=== PATIENT | male | born 1950 | race African-American/Black ===

== ENCOUNTER 2018-04-15 10:04 | Inpatient (IN) | payer OTHER, MEDICAID ==
[~2018-04-15] VITALS: Ht 160 cm; Wt 89.6 kg
[2018-04-15] MEDS ORDERED: KETOROLAC 30MG/ML VIAL IV STA (11:32)
[2018-04-15 12:23] LABS: BASOPHILS % 0.3 % (0.0-2.0); EOSINOPHILS % 0.7 % (0.0-5.0); HEMATOCRIT. 44.8 % (42.0-52.0); HEMOGLOBIN. 14.3 g/dL (14.0-18.0); MEAN CORPUSCULAR HEMOGLOBIN 23.9 pg (28.0-32.0); MEAN CORPUSCULAR VOLUME 75.1 fL (80.0-94.0); MEAN PLATELET VOLUME 11.3 fl (7.4-10.4); MONOCYTES % 12.4 % (2.0-8.0); NEUTROPHILS % 59.6 % (40.0-76.0); PLATELET 142 x1000/uL (130-400); RED BLOOD CELL COUNT 5.97 mill/uL (4.7-6.1); RED CELL DISTRIBUTION WIDTH 15.3 % (11.6-14.6)
[2018-04-15 12:31] LABS: CHLORIDE 105 mEq/L (98-107)
[2018-04-15] MEDS ORDERED: ASPIRIN 325MG EC TABLET PO ONE (12:45)
[2018-04-15 13:38] LABS: CREATINE KINASE MB FRACTION 1.5 ng/mL (0.5-3.6)
[2018-04-15] MEDS ORDERED: AMLODIPINE 5MG TABLET PO SCH (14:45)
[2018-04-15] MEDS ORDERED: LOSARTAN POTASSIUM 50 MG TABLET PO NR (14:45)
[2018-04-15] MEDS ORDERED: ACETAMINOPHEN 325MG TABLET PO PRN (16:30)
[2018-04-15] MEDS ORDERED: ONDANSETRON HCL 4MG/2ML INJ IV PRN (16:30)
[2018-04-15 16:43] LABS: CLARITY URINE CLEAR (CLEAR); COLOR URINE YELLOW (YELLOW); KETONES URINE NEGATIVE (NEGATIVE); LEUKOCYTE ESTERASE URINE NEGATIVE (NEGATIVE); NITRITE URINE NEGATIVE (NEGATIVE); OCCULT BLOOD URINE NEGATIVE (NEGATIVE); PROTEIN URINE TRACE (NEGATIVE); SPECIFIC GRAVITY URINE 1.015 (1.005-1.030); UROBILINOGEN URINE 0.2 E.U./dL (0.2-1.0)
[2018-04-15 17:01] LABS: *AMPHETAMINES SCREEN URINE NEGATIVE (NEGATIVE); *BARBITURATES SCREEN URINE NEGATIVE (NEGATIVE)
[2018-04-15 17:02] LABS: *BENZODIAZEPINES SCREEN URINE NEGATIVE (NEGATIVE); *COCAINE SCREEN URINE NEGATIVE (NEGATIVE); CANNABINOID URINE SCREEN NEGATIVE (NEGATIVE); METHADONE URINE SCREEN NEGATIVE (NEGATIVE); OPIATES URINE SCREEN NEGATIVE (NEGATIVE); PHENCYCLIDINE URINE SCREEN NEGATIVE (NEGATIVE)
[2018-04-15 18:00] VITALS: BP 196/86
[2018-04-15] MEDS: OMEPRAZOLE 20MG CAPSULE EXTENDED RELEASE PO SCH (18:14)
[2018-04-15] MEDS: HYDRALAZINE 20MG/ML VIAL IV PRN (18:15)
[2018-04-15] MEDS ORDERED: LABETALOL 5MG/ML SYR 20 MG/4 ML SYRINGE IV NR (19:00)
[2018-04-15 20:00] VITALS: BP 112/87
[2018-04-15] MEDS ORDERED: HYDR-4135 MT (20:58)
[2018-04-15] MEDS ORDERED: LISI40TA4 MT (20:58)
[2018-04-15] MEDS ORDERED: AMLO10TA80 MT (20:58)
[2018-04-15] MEDS ORDERED: ATOR10TA MT (20:58)
[2018-04-15] MEDS ORDERED: METO-539 PO (20:58)
[2018-04-15] MEDS ORDERED: DYZ MT (20:58)
[2018-04-15] MEDS ORDERED: NAPR375T5 MT (20:58)
[2018-04-15] MEDS ORDERED: PROM5SYR PO (20:58)
[2018-04-15] MEDS ORDERED: ATEN50TA MT (20:58)
[2018-04-15] MEDS ORDERED: OMEP40CA34 MT (20:58)
[2018-04-15] MEDS ORDERED: ASPI-1159 MT (20:58)
[2018-04-15 22:33] VITALS: BP 140/74
[2018-04-15] MEDS: METOPROLOL TARTRATE 50MG TABLET PO SCH (22:33)
[2018-04-15] MEDS: AMLODIPINE 5MG TABLET PO SCH (22:33)
[2018-04-16] VITALS: BP 136/72
[2018-04-16 04:00] VITALS: BP 141/79
[2018-04-16 06:24] LABS: BASOPHILS % 0.2 % (0.0-2.0); EOSINOPHILS % 0.9 % (0.0-5.0); HEMATOCRIT. 42.7 % (42.0-52.0); HEMOGLOBIN. 13.5 g/dL (14.0-18.0); LYMPHOCYTES % 22.1 % (20.0-50.0); MEAN CORPUSCULAR HEMOGLOBIN 23.8 pg (28.0-32.0); MEAN CORPUSCULAR VOLUME 75.2 fL (80.0-94.0); MEAN PLATELET VOLUME 10.9 fl (7.4-10.4); MONOCYTES % 12.5 % (2.0-8.0); NEUTROPHILS % 64.3 % (40.0-76.0); PLATELET 141 x1000/uL (130-400); RED BLOOD CELL COUNT 5.67 mill/uL (4.7-6.1); RED CELL DISTRIBUTION WIDTH 15.7 % (11.6-14.6)
[2018-04-16] MEDS: OMEPRAZOLE 20MG CAPSULE EXTENDED RELEASE PO SCH (06:24)
[2018-04-16 07:21] LABS: CHLORIDE 106 mEq/L (98-107)
[2018-04-16 08:00] VITALS: BP 168/83
[2018-04-16] MEDS ORDERED: LOSARTAN POTASSIUM 50 MG TABLET PO SCH (09:00)
[2018-04-16] MEDS: AMLODIPINE 5MG TABLET PO SCH ×2 (09:10→20:28)
[2018-04-16] MEDS: METOPROLOL TARTRATE 50MG TABLET PO SCH ×2 (09:10→20:27)
[2018-04-16] MEDS: LOSARTAN POTASSIUM 100 MG TABLET PO SCH (09:10)
[2018-04-16] MEDS: ASPIRIN 81MG TABLET PO SCH (09:11)
[2018-04-16 11:14] LABS: T4 FREE 0.85 ng/dL (0.76-1.46)
[2018-04-16 12:00] VITALS: BP 152/88
[2018-04-16] MEDS: FUROSEMIDE 40MG/4ML VIAL IVP SCH (12:54)
[2018-04-16 16:00] VITALS: BP 165/84
[2018-04-16] MEDS: HYDROCODONE/ACETAMINOPHEN 5/325MG TABLET PO PRN (20:28)
[2018-04-16 23:58] LABS: CREATINE KINASE MB FRACTION 1.8 ng/mL (0.5-3.6)
[2018-04-17] VITALS: BP 130/67
[2018-04-17 04:00] VITALS: BP 145/79
[2018-04-17] MEDS: OMEPRAZOLE 20MG CAPSULE EXTENDED RELEASE PO SCH (05:52)
[2018-04-17] MEDS: HYDROCODONE/ACETAMINOPHEN 5/325MG TABLET PO PRN ×3 (05:55→20:41)
[2018-04-17 08:00] VITALS: BP 164/94
[2018-04-17 08:11] LABS: BASOPHILS % 0.1 % (0.0-2.0); EOSINOPHILS % 1.2 % (0.0-5.0); HEMATOCRIT. 45.5 % (42.0-52.0); HEMOGLOBIN. 14.4 g/dL (14.0-18.0); LYMPHOCYTES % 30.4 % (20.0-50.0); MEAN CORPUSCULAR HEMOGLOBIN 23.8 pg (28.0-32.0); MEAN CORPUSCULAR VOLUME 75.3 fL (80.0-94.0); MEAN PLATELET VOLUME 10.8 fl (7.4-10.4); MONOCYTES % 12.4 % (2.0-8.0); NEUTROPHILS % 55.9 % (40.0-76.0); PLATELET 149 x1000/uL (130-400); RED BLOOD CELL COUNT 6.04 mill/uL (4.7-6.1); RED CELL DISTRIBUTION WIDTH 15.9 % (11.6-14.6)
[2018-04-17 08:15] LABS: CHLORIDE 108 mEq/L (98-107)
[2018-04-17 08:25] LABS: CREATINE KINASE 253 IU/L (39-308)
[2018-04-17 08:26] LABS: CREATINE KINASE MB FRACTION 1.4 ng/mL (0.5-3.6)
[2018-04-17] MEDS: LOSARTAN POTASSIUM 100 MG TABLET PO SCH ×2 (08:27→09:00)
[2018-04-17] MEDS: ASPIRIN 81MG TABLET PO SCH ×2 (08:27→09:00)
[2018-04-17] MEDS: METOPROLOL TARTRATE 50MG TABLET PO SCH ×3 (08:27→20:41)
[2018-04-17] MEDS: AMLODIPINE 5MG TABLET PO SCH ×3 (08:28→20:41)
[2018-04-17] MEDS: FUROSEMIDE 40MG/4ML VIAL IVP SCH (09:46)
[2018-04-17 12:00] VITALS: BP 170/87
[2018-04-17] MEDS ORDERED: REGADENOSON 0.4 MG/5 ML IV ONE (14:00)
[2018-04-17] MEDS: HYDRALAZINE HCL 50MG TABLET PO SCH ×2 (14:58→22:00)
[2018-04-17 16:00] VITALS: BP 141/79
[2018-04-17 20:00] VITALS: BP 183/91
[2018-04-18] VITALS: BP 165/90
[2018-04-18] MEDS: HYDRALAZINE 20MG/ML VIAL IV PRN ×2 (01:52→11:03)
[2018-04-18 04:00] VITALS: BP 144/60
[2018-04-18] MEDS: HYDRALAZINE HCL 50MG TABLET PO SCH ×2 (06:00→14:12)
[2018-04-18] MEDS: OMEPRAZOLE 20MG CAPSULE EXTENDED RELEASE PO SCH (06:45)
[2018-04-18 07:45] VITALS: BP 153/90
[2018-04-18] MEDS ORDERED: REGADENOSON 0.4 MG/5 ML IV ONE (08:14)
[2018-04-18 08:20] LABS: BASOPHILS % 0.3 % (0.0-2.0); EOSINOPHILS % 0.7 % (0.0-5.0); HEMATOCRIT. 49.6 % (42.0-52.0); HEMOGLOBIN. 15.6 g/dL (14.0-18.0); LYMPHOCYTES % 32.8 % (20.0-50.0); MEAN CORPUSCULAR HEMOGLOBIN 23.8 pg (28.0-32.0); MEAN CORPUSCULAR VOLUME 75.7 fL (80.0-94.0); MEAN PLATELET VOLUME 10.8 fl (7.4-10.4); MONOCYTES % 9.3 % (2.0-8.0); NEUTROPHILS % 56.9 % (40.0-76.0); PLATELET 171 x1000/uL (130-400); RED BLOOD CELL COUNT 6.55 mill/uL (4.7-6.1); RED CELL DISTRIBUTION WIDTH 15.9 % (11.6-14.6)
[2018-04-18] MEDS: AMLODIPINE 5MG TABLET PO SCH (09:37)
[2018-04-18] MEDS: ASPIRIN 81MG TABLET PO SCH (09:37)
[2018-04-18] MEDS: LOSARTAN POTASSIUM 100 MG TABLET PO SCH (09:37)
[2018-04-18] MEDS: METOPROLOL TARTRATE 50MG TABLET PO SCH (09:38)
[2018-04-18 10:13] LABS: CHLORIDE 104 mEq/L (98-107)
[2018-04-18 12:00] VITALS: BP 143/72
[2018-04-18] MEDS ORDERED: METO-539 PO (16:24)
[2018-04-18] MEDS ORDERED: HYDR-4135 PO (16:24)
[2018-04-18] MEDS ORDERED: ASPI-1160 PO (16:24)
[2018-04-18] MEDS ORDERED: OMEP20CA10 PO (16:24)
[2018-04-18] MEDS ORDERED: LOSA100T3 PO (16:24)
[2018-04-18] MEDS ORDERED: AMLO5TAB88 PO (16:24)
[2018-04-18 17:35] VITALS: BP 145/86
== END 2018-04-18 18:30 | disposition home or self-care (01) | DRG 206 ==
LOC: ER 10:04 → 5WST 12:48 → ENRESERV 16:14 → CANRESERV 16:14
PROVIDERS: ADMIT Internal Medicine; ATTEND Internal Medicine
DX: M94.0 Chondrocostal junction syndrome [Tietze] (principal); M62.82 Rhabdomyolysis; I16.0 Hypertensive urgency; K21.9 Gastro-esophageal reflux disease without esophagitis; E11.9 Type 2 diabetes mellitus without complications; E66.9 Obesity, unspecified; E78.00 Pure hypercholesterolemia, unspecified; E78.5 Hyperlipidemia, unspecified; I10 Essential (primary) hypertension; I44.0 Atrioventricular block, first degree; Z79.899 Other long term (current) drug therapy; Z79.82 Long term (current) use of aspirin; Z68.35 Body mass index [BMI] 35.0-35.9, adult
CPT/HCPCS: 36415; 71045; 78452; 80048; 80061; 80305; 82550; 82553; 83036; 83880; 84439; 84443; 84484; 93005; 93306; 93970; 96374; 96375; 99285; A9500; J0360; J1885; J1940; J2785; J3490

== ENCOUNTER 2023-02-18 11:37 | Emergency (ER) | payer BC, MEDICAID ==
[~2023-02-18] VITALS: Ht 162.6 cm; Wt 118.0 kg
[~2023-02-18 11:37] MED LIST: AMLO5TAB88 PO; ASPI-1160 PO; ATOR10TA MT; HYDR-4135 PO; LOSA100T4 PO; METO-539 PO; OMEP20CA14 PO
[2023-02-18 11:39] VITALS: O2SAT 100
[2023-02-18 13:34] LABS: BASOPHILS % 0.2 % (0.0-2.0); DIFFERENTIAL COMMENT 0; EOSINOPHILS % 2.8 % (0.0-5.0); HEMATOCRIT. 44.9 % (42.0-52.0); HEMOGLOBIN. 14.2 g/dL (14.0-18.0); LYMPHOCYTES % 25.6 % (20.0-50.0); MEAN CORPUSCULAR HEMOGLOBIN 23.5 pg (28.0-32.0); MEAN CORPUSCULAR HGB CONC 31.7 g/dL (31.0-37.0); MEAN PLATELET VOLUME 9.9 fl (7.4-10.4); MONOCYTES % 14.6 % (2.0-8.0); NEUTROPHILS % 56.8 % (40.0-76.0); PLATELET 187 x1000/uL (130-400); RED BLOOD CELL COUNT 6.06 mill/uL (4.7-6.1); RED CELL DISTRIBUTION WIDTH 17.1 % (11.6-14.6); WHITE BLOOD COUNT 5.1 x1000/uL (4.5-11.0)
[2023-02-18 13:46] LABS: CHLORIDE 110 mEq/L (98-107); INDEX HEMOLYSI 1 (1-3); INDEX ICTERIC 1 (1-4); INDEX LIPEMIC 1 (1-3); POTASSIUM 4.2 mEq/L (3.5-5.1); SODIUM 142 mEq/L (136-145)
[2023-02-18 13:54] LABS: ALANINE AMINOTRANSFERASE 20 IU/L (13-61); ALBUMIN 3.7 g/dL (3.4-5.0); ASPARTATE AMINOTRANSFERASE 21 IU/L (15-37); BILIRUBIN TOTAL 0.5 mg/dL (0.1-1.0); CALCIUM 8.7 mg/dL (8.5-10.1); CARBON DIOXIDE 27 mEq/L (21-32); CREATININE 1.5 mg/dL (0.6-1.3); GLUCOSE 100 mg/dL (70-105); PROTEIN TOTAL 7.7 g/dL (6.0-8.3); UREA NITROGEN BLOOD 21 mg/dL (7-21)
[2023-02-18 14:29] LABS: LACTIC ACID 2.3 mmol/L (0.4-2.0)
[2023-02-18 15:25] LABS: CLARITY URINE CLEAR (CLEAR); COLOR URINE YELLOW (YELLOW); GLUCOSE URINE NEGATIVE (NEGATIVE); KETONES URINE NEGATIVE (NEGATIVE); LEUKOCYTE ESTERASE URINE NEGATIVE (NEGATIVE); NITRITE URINE NEGATIVE (NEGATIVE); OCCULT BLOOD URINE NEGATIVE (NEGATIVE); PROTEIN URINE TRACE (NEGATIVE); SPECIFIC GRAVITY URINE 1.014 (1.005-1.030); UROBILINOGEN URINE 0.2 E.U./dL (0.2-1.0)
[2023-02-18 15:27] LABS: BACTERIA URINE NONE SEEN; RBC URINE NONE SEEN /hpf (0-2); SQUAMOUS EPITHELIAL CELL URINE NONE SEEN /lpf (RARE/1+); YEAST URINE NONE SEEN
[2023-02-18 15:46] LABS: WBC URINE 0-2 /hpf (0-2)
[2023-02-18] MEDS ORDERED: IOHEXOL-300 100 ML BOTTLE ONE (16:45)
[2023-02-18] MEDS ORDERED: ACET-2708 MT (17:49)
[2023-02-18 17:58] VITALS: BP 202/103; PULSE 63; RESP 16; TEMP 98.8
[2023-02-18] MEDS ORDERED: IBUPROFEN 600MG TABLET PO ONE (18:00)
== END 2023-02-18 18:26 | disposition home or self-care (01) ==
LOC: ER 11:37
DX: R10.11 Right upper quadrant pain (principal); M25.511 Pain in right shoulder; I10 Essential (primary) hypertension; E78.00 Pure hypercholesterolemia, unspecified
CPT/HCPCS: 99285; 74177; 71045; 80053; 81003; 83605; 85025; 36415; 73030; Q9967

== ENCOUNTER 2024-12-21 12:10 | Emergency (ER) | payer BC, MEDICAID ==
[~2024-12-21] VITALS: Ht 162.6 cm; Wt 87.0 kg
[~2024-12-21 12:10] MED LIST changes: +ACET-2708 MT; -AMLO5TAB88 PO; -ASPI-1160 PO; +ASPI-1497 MT; -ATOR10TA MT; +ATOR20TA MT; +CLON-493 MT; +COLC0.6C3 MT; -HYDR-4135 PO; +HYDR100T11 MT; -LOSA100T4 PO; +LOSA50TA41 MT; -METO-539 PO; +NIFE90TA60 MT; +NITR0.4T49 SL; +SUCR1TAB30 PO
[2024-12-21 12:27] VITALS: O2SAT 98
[2024-12-21 13:04] LABS: BASOPHILS % 0.4 % (0.0-2.0); EOSINOPHILS % 1.9 % (0.0-5.0); HEMATOCRIT. 42.3 % (42.0-52.0); HEMOGLOBIN. 13.2 g/dL (14.0-18.0); LYMPHOCYTES % 21.6 % (20.0-50.0); MEAN PLATELET VOLUME 9.3 fl (7.4-10.4); MONOCYTES % 13.5 % (2.0-8.0); NEUTROPHILS % 62.6 % (40.0-76.0); PLATELET 423 x1000/uL (130-400); RED BLOOD CELL COUNT 5.84 mill/uL (4.7-6.1); RED CELL DISTRIBUTION WIDTH 17.3 % (11.6-14.6)
[2024-12-21 13:44] LABS: CREATININE 2.2 mg/dL (0.6-1.3)
[2024-12-21 13:45] LABS: UREA NITROGEN BLOOD 28 mg/dL (9-23)
[2024-12-21 13:46] LABS: ASPARTATE AMINOTRANSFERASE 14 IU/L (<34)
[2024-12-21 13:47] LABS: BILIRUBIN DIRECT 0.2 mg/dL (<=3.0); BILIRUBIN TOTAL 0.5 mg/dL (0.1-1.0); PROTEIN TOTAL 7.0 g/dL (6.0-8.3)
[2024-12-21] MEDS: KETOROLAC 15MG/ML VIAL IM ONE (14:42)
[2024-12-21] MEDS: ACETAMINOPHEN 325MG TABLET PO ONE (14:42)
[2024-12-21 14:52] LABS: CLARITY URINE CLEAR (CLEAR); COLOR URINE YELLOW (YELLOW); GLUCOSE URINE NEGATIVE (NEGATIVE); KETONES URINE NEGATIVE (NEGATIVE); LEUKOCYTE ESTERASE URINE NEGATIVE (NEGATIVE); NITRITE URINE NEGATIVE (NEGATIVE); OCCULT BLOOD URINE NEGATIVE (NEGATIVE); PH URINE 5.5 (4.5-8.0); PROTEIN URINE 1+ (NEGATIVE); SPECIFIC GRAVITY URINE 1.020 (1.005-1.030); UROBILINOGEN URINE 0.2 E.U./dL (0.2-1.0)
[2024-12-21 15:09] LABS: SQUAMOUS EPITHELIAL CELL URINE 1+ /lpf (RARE/1+)
[2024-12-21 15:10] LABS: BACTERIA URINE 1+; MUCUS URINE TRACE /lpf (NONE/TRACE)
[2024-12-21 15:11] LABS: RBC URINE NONE SEEN /hpf (0-2); WBC URINE 0-2 /hpf (0-2)
[2024-12-21 15:32] VITALS: BP 152/87; PULSE 63; RESP 14; TEMP 36.9; O2SAT 99
== END 2024-12-21 15:35 | disposition home or self-care (01) ==
LOC: ER 12:10
DX: R10.32 Left lower quadrant pain (principal); E78.00 Pure hypercholesterolemia, unspecified; I10 Essential (primary) hypertension; Z88.8 Allergy status to other drugs, medicaments and biological substances; Z98.890 Other specified postprocedural states; Z79.899 Other long term (current) drug therapy; Z79.82 Long term (current) use of aspirin
CPT/HCPCS: 99285; 74176; 80076; 80048; 81003; 83690; 85025; 36415; 96372; J1885